=== PATIENT | female | born 1990 | race Two or more races ===

== ENCOUNTER 2018-04-03 19:28 | Emergency (ER) | payer OTHER ==
[~2018-04-03] VITALS: Ht 175.3 cm; Wt 74.8 kg
[~2018-04-03 19:28] MED LIST: CEFADROXIL500 MG PO; PEPCID40 MG PO; PHENERGAN25 MG PO
== END 2018-04-03 22:48 | disposition home or self-care (01) ==
LOC: ER 19:28
DX: J06.9 Acute upper respiratory infection, unspecified (principal)

== ENCOUNTER 2019-01-21 16:04 | Emergency (ER) | payer OTHER ==
[~2019-01-21] VITALS: Ht 170.2 cm; Wt 58.1 kg
[2019-01-21] MEDS ORDERED: SKELAXIN800 MG PO (18:13)
[2019-01-21] MEDS ORDERED: NAPROXEN500 MG PO (18:13)
== END 2019-01-21 18:43 | disposition home or self-care (01) ==
LOC: ER 16:04
DX: M54.2 Cervicalgia (principal)

== ENCOUNTER 2021-03-30 07:48 | Emergency (ER) | payer OTHER ==
[~2021-03-30] VITALS: Ht 172.7 cm; Wt 69.9 kg
[~2021-03-30 07:48] MED LIST changes: +NAPROXEN500 MG PO; +SKELAXIN800 MG PO
[2021-03-30] MEDS ORDERED: METRONIDAZOLE500 MG PO (12:08)
== END 2021-03-30 12:13 | disposition home or self-care (01) ==
LOC: ER 07:48
DX: N76.0 Acute vaginitis (principal); R10.2 Pelvic and perineal pain

== ENCOUNTER 2021-11-20 10:48 | Emergency (ER) | payer OTHER ==
[~2021-11-20] VITALS: Ht 172.7 cm; Wt 71.7 kg
[~2021-11-20 10:48] MED LIST changes: +METRONIDAZOLE500 MG PO
== END 2021-11-20 16:47 | disposition home or self-care (01) ==
LOC: ER 10:48
DX: N39.0 Urinary tract infection, site not specified (principal); B96.20 Unspecified Escherichia coli [E. coli] as the cause of diseases classified elsewhere

== ENCOUNTER 2022-08-01 08:32 | Emergency (ER) | payer OTHER ==
[~2022-08-01] VITALS: Ht 175.3 cm; Wt 72.6 kg
== END 2022-08-01 12:09 | disposition home or self-care (01) ==
LOC: ER 08:32
DX: J10.1 Influenza due to other identified influenza virus with other respiratory manifestations (principal); Z88.8 Allergy status to other drugs, medicaments and biological substances; Z20.822 Contact with and (suspected) exposure to COVID-19

== ENCOUNTER 2022-08-07 19:45 | Emergency (ER) | payer OTHER ==
[~2022-08-07] VITALS: Ht 175.3 cm; Wt 71.7 kg
[2022-08-08] MEDS ORDERED: INTESTINEX680 M1 PO (02:53)
== END 2022-08-08 03:09 | disposition home or self-care (01) ==
LOC: ER 19:45
DX: K52.9 Noninfective gastroenteritis and colitis, unspecified (principal)

== ENCOUNTER 2023-01-23 08:40 | Emergency (ER) | payer OTHER ==
[~2023-01-23] VITALS: Ht 175.3 cm; Wt 72.6 kg
[~2023-01-23 08:40] MED LIST changes: +INTESTINEX680 M1 PO
[2023-01-23 11:11] LABS: HEMATOCRIT 41.4 % (36.0-45.00); HEMOGLOBIN 13.6 g/dL (12.0-15.00); MEAN CELL VOLUME 85.9 fL (80.00-100.00); MEAN CORPUSCULAR HEMOGLOBIN 28.2 pg (27.00-32.0); MEAN CORPUSCULAR HGB CONC 32.8 g/dl (32.0-36.0); PLATELET COUNT 350 K/uL (150-450); RED BLOOD COUNT 4.82 M/uL (4.00-6.00); RED CELL DISTRIBUTION WIDTH 14.9 % (11.5-14.5)
[2023-01-23 11:12] LABS: URINE APPEARANCE Clear; URINE BILIRRUBIN Negative (NEGATIVE); URINE BLOOD Small; URINE COLOR Yellow; URINE GLUCOSE Negative (NEGATIVE); URINE LEUKOCYTE Moderate; URINE NITRATE Negative; URINE PROTEIN Negative (NEGATIVE); URINE UROBILINOGEN 0.2 E.U./dl
[2023-01-23 11:14] LABS: URINE BACTERIA 115.8 uL (0.0-1933); URINE EPITHELIAL CELLS 8.1 uL (0.0-38.8); URINE RBC 10.3 uL (0.0-20.8); URINE WBC 288.1 uL (0.0-23.2)
== END 2023-01-23 12:15 | disposition home or self-care (01) ==
LOC: ER 08:40
PROVIDERS: General Practice
DX: N39.0 Urinary tract infection, site not specified (principal); Z88.8 Allergy status to other drugs, medicaments and biological substances

== ENCOUNTER → 2024-06-05 | Emergency (ER) | payer OTHER ==
[~2024-06-05] VITALS: Ht 162.6 cm; Wt 86.2 kg
[~2024-06-05] MED LIST changes: +RIZATRIPTAN5 MG PO; +SINGULAIR10 MG
[2024-06-05 08:32] VITALS: BP 127/89; O2SAT 100
== END | disposition left against medical advice (07) ==
LOC: ER 08:27
DX: Z53.21 Procedure and treatment not carried out due to patient leaving prior to being seen by health care provider (principal)

== ENCOUNTER 2024-06-30 14:13 | Emergency (ER) | payer OTHER ==
[~2024-06-30] VITALS: Ht 172.7 cm; Wt 81.6 kg
[2024-06-30] MEDS ORDERED: ORPHENADRINE CITRATE 30 MG/ML AMPUL IM STA (15:10)
[2024-06-30] MEDS ORDERED: ORPHENADRINE CITRATE 30 MG/ML AMPUL ONE (15:20)
== END 2024-06-30 18:32 | disposition home or self-care (01) ==
LOC: ER 14:13
DX: M25.521 Pain in right elbow (principal); Z88.0 Allergy status to penicillin; Z88.8 Allergy status to other drugs, medicaments and biological substances

== ENCOUNTER 2024-07-04 13:42 | Outpatient (CLI) | payer OTHER | END 2024-07-04 13:54 | disposition home or self-care (01) | LOC: MRI 13:42 | PROVIDERS: ATTEND Family Medicine | DX: M25.521 Pain in right elbow (principal) | CPT/HCPCS: 73218 ==